=== PATIENT | female | born 1995 | race Hispanic/Latino ===

== ENCOUNTER 2022-05-16 04:38 | Inpatient (IN) | payer MEDICAID, OTHER, SELFPAY ==
[2022-05-16 05:07] VITALS: BMI 29.7
[2022-05-16] MEDS ORDERED: Bupivacaine 0.25% HCL 30 ML VIAL ONE (08:00)
[2022-05-16] MEDS ORDERED: Bupivacaine/Epinephrine 0.25% 30 ML VIAL ONE (08:00)
[2022-05-16] MEDS ORDERED: HYDROcodone/Acetaminophen 5/325 mg Tablet PO PRN ×2 (08:33→15:45)
[2022-05-16] MEDS ORDERED: Methylergonovine 0.2 MG/ML VIAL IM PRN (08:33)
[2022-05-16] MEDS ORDERED: Acetaminophen 500 MG TAB PO PRN (08:33)
[2022-05-16] MEDS ORDERED: hydrALAZINE 20 MG/ML VIAL SLOW IVP PRN ×2 (08:33→15:45)
[2022-05-16] MEDS ORDERED: Lidocaine 1% (PF) 30 ML VIAL SC PRN (08:33)
[2022-05-16] MEDS ORDERED: Butorphanol Tartrate 1 MG/ML VIAL SLOW IVP PRN (08:33)
[2022-05-16] MEDS ORDERED: Fentanyl 100 MCG/2 ML VIAL SLOW IVP PRN (08:33)
[2022-05-16] MEDS ORDERED: Ondansetron PF 4 MG/2 ML Vial IVP PRN ×3 (08:33→15:45)
[2022-05-16] MEDS ORDERED: Promethazine HCl 25 MG/ML VIAL IM PRN ×3 (08:33→15:45)
[2022-05-16] MEDS ORDERED: Tranexamic Acid 1,000 MG/10 ML VIAL IVP PRN (08:33)
[2022-05-16] MEDS ORDERED: Carboprost 250 MCG/ML AMP IM PRN (08:33)
[2022-05-16] MEDS ORDERED: Misoprostol 200 MCG TAB PR PRN (08:33)
[2022-05-16] MEDS ORDERED: Diphenoxylate HCl/Atropine Tablet PO PRN (08:33)
[2022-05-16] MEDS ORDERED: NS w/ Oxytocin 30 units 500 ML IV SCH ×3 (08:45)
[2022-05-16] MEDS ORDERED: Penicillin G Potassium 5 MILL.UNITS in Sodium Chloride 0.9% 100 ML IVPB SCH (08:45)
[2022-05-16] MEDS ORDERED: Lactated Ringer's 1,000 ML IV SCH (08:45)
[2022-05-16 09:02] LABS: Mean Corpuscular HGB CONC 34.1 g/dL (32.0-36.0); Mean Corpuscular Hemoglobin 30.8 pg (27.0-33.0); Mean Corpuscular Volume 90.1 fl (81.6-98.3); Mean Platelet Volume 11.6 fl (7.4-10.4); Platelet Count 262 10x3/uL (150-450); RBC Distribution Width 13.3 % (11.5-14.5); Red Blood Cell (RBC) Count 4.55 10x6/uL (3.90-5.03); White Blood Cell (WBC) Count 13.9 10x3/uL (3.5-10.5)
[2022-05-16 09:37] LABS: HBSAg Index 0.22 S/CO (0-0.99); Hep B Surf Ag - L&D Non-Reactive S/CO (NonReactive)
[2022-05-16 09:39] LABS: Syphilis Antibody Nonreactive (Nonreactive); Syphilis Antibody Index 0.03 S/CO (<1.00 Non-Reactive)
[2022-05-16] MEDS ORDERED: Fentanyl 2 mcg/Bup 0.1% Cadd 100 ML ONE (09:49)
[2022-05-16] MEDS ORDERED: Penicillin G 2.5 MILL.units 2.5 MILL.UNITS in Premix Bag 1 BAG IVPB SCH (12:45)
[2022-05-16] MEDS ORDERED: Lactated Ringer's 500 ML IV PRN (13:18)
[2022-05-16] MEDS ORDERED: diphenhydrAMINE 50 MG/ML VIAL IVP PRN (13:18)
[2022-05-16] MEDS ORDERED: Moisturizing Cream (Eucerin) 113 GM JAR TOP PRN (13:18)
[2022-05-16] MEDS ORDERED: Naloxone HCl 0.4 mg/ml Vial IVP PRN ×2 (13:18)
[2022-05-16] MEDS ORDERED: ePHEDrine Sulfate 50 MG/10 ML VIAL SLOW IVP PRN (13:18)
[2022-05-16] MEDS ORDERED: Acetaminophen 325 MG TAB PO PRN (13:18)
[2022-05-16] MEDS ORDERED: Communication Order-Pharmacy FS SCH (13:30)
[2022-05-16] MEDS ORDERED: Fentanyl 2 mcg/Bupivacaine 0.1% Cassette 100 ML EPIDURAL SCH (13:30)
[2022-05-16] MEDS ORDERED: diphenhydrAMINE 25 MG CAP PO PRN (15:45)
[2022-05-16] MEDS ORDERED: Milk Of Magnesia 30 ML UDCUP PO PRN (15:45)
[2022-05-16] MEDS ORDERED: Bisacodyl 10 MG SUPP PR PRN (15:45)
[2022-05-16] MEDS ORDERED: Benzocaine-Menthol 82.5 ML CAN TOP PRN (15:45)
[2022-05-16] MEDS ORDERED: Lanolin Ointment 7 GM TUBE TOP PRN (15:45)
[2022-05-16] MEDS ORDERED: Boostrix 0.5 ML (Tdap) VIAL (>/=7 yrs of age) IM ONE (15:45)
[2022-05-16] MEDS ORDERED: Ibuprofen 800 MG TAB PO SCH (16:00)
[2022-05-16] MEDS: Ferrous Sulfate 325 MG TAB PO SCH (17:28)
[2022-05-16] MEDS: Ibuprofen 800 MG TAB PO SCH (21:39)
[2022-05-16] MEDS: Docusate 100 MG CAP PO SCH (21:40)
[2022-05-17] MEDS: Ibuprofen 800 MG TAB PO SCH ×2 (05:33→14:03)
[2022-05-17] MEDS: Ferrous Sulfate 325 MG TAB PO SCH ×2 (07:32→16:15)
[2022-05-17] MEDS ORDERED: Prenatal Vitamin 1 TAB PO SCH (09:00)
[2022-05-17] MEDS: Docusate 100 MG CAP PO SCH (09:25)
[2022-05-17 16:15] VITALS: BP 124/80; TEMP 97.5
== END 2022-05-17 17:00 | disposition home or self-care (01) | DRG 807 ==
LOC: CSHLD/OP 04:38 → CSHLD 08:33 → CSHPP 15:28
PROVIDERS: ADMIT Family Medicine; ATTEND Family Medicine
PROC: 10E0XZZ Delivery of Products of Conception, External Approach (ICD-10-PCS; principal; 2022-05-16)
DX: O99.824 Streptococcus B carrier state complicating childbirth (principal); Z37.0 Single live birth; Z3A.38 38 weeks gestation of pregnancy
CPT/HCPCS: 36415; 51702; 85027; 86780; 86850; 86900; 86901; 87340; 99285; J2540; J2590; J3490; S0020